=== PATIENT | female | born 1970 | race Caucasian/White ===

== ENCOUNTER → 2016-09-27 | Outpatient (CLI) | payer OTHER ==
[~2016-09-27] MED LIST: ALPRAZOLAM; AMBIEN; AMPHETAMINE SAL20 M1; LEVOTHROID; NORCO 5-325 TA1 EACH PO; ZOFRAN4 MG PO; ZOLOFT
== END ==
LOC: RAD 15:13 → BC 15:13
DX: Z12.31 Encounter for screening mammogram for malignant neoplasm of breast (principal)